=== PATIENT | male | born 1935 | race Caucasian/White ===

== ENCOUNTER 2025-05-23 22:08 | Emergency (ER) | payer BC, MEDICARE, OTHER ==
[2025-05-23 22:15] VITALS: BP 119/81; PULSE 83; RESP 15; TEMP 97.5; O2SAT 98
--- NOTE | 2025-05-23 23:26 | Physician Documentation ---
History of Present Illness ~ Chief Complaint: Nose bleed Stated Complaint: BLOODY NOSE Time Seen by MD: 22:59 Primary Medical Doctor: [facility] Patient is an 89-year-old male that presents to the emergency department for evaluation of nosebleed that started spontaneously approximately an hour and a half to 2 hours ago. Patient reports that he blew his nose at that time his nose started bleeding in the left nostril and then shortly after out of the right nostril. He reports that his right nostril developed a clot he pulled the clot out in the right nostril started bleeding again. Patient reports that his this is his 3rd nosebleed in approximately a month to a month and a half. Patient has had his nose clamped for approximately 30 minutes without resolution of the nosebleed. Denies blood thinners, bleeding disorders, or any other medical conditions that would contribute to the bleeding at this time. Medication Reconciliation Allergies: Coded Allergies: No Known Allergies (Unverified , 04/21/09) Past Medical History Past Medical History: High Cholesterol, Hypertension, GERD Past Surgical History: cholecystectomy, orthopedic surgeries, other Alcohol Use: Rarely Drug Use: none Review of Systems ROS As stated above in the HPI, otherwise all systems are reviewed and negative. Physical Exam Vital Signs: Temperature: 97.5, Source: Temporal, Heart Rate: 83, Respiratory Rate: 15, BP: 119/81, Pulse Oximetry: 98 Physical Exam VITALS: Reviewed and as above. GENERAL: Alert, no apparent distress. HEENT: Normocephalic, atraumatic, PERRL, EOMI, dry mucosa, no erythema, nosebleed to bilateral nares. RESPIRATORY: Lungs clear, normal breath sounds, no respiratory distress. CHEST: No accessory muscle use, no retractions CV: Regular rate, rhythm, no edema, no murmur, No: JVD GI: Soft, non-tender, bowels sounds present, no rebound, guarding, or rigidity BACK: No CVA tenderness, or swelling MUSCULOSKELETAL No deformities, no edema SKIN: Warm and dry, no rash NEURO: Oriented x4, No motor or sensory deficit PSYCH: Normal mood and affect, no agitation Progress Results/Orders Results/Orders Orders - HECTOR VILLA General Nursing Order (05/23/25 23:27) Completed Orders - [facility]ECTOR [facility]A Cbc/Diff (05/23/25 23:32) CMP (05/23/25 23:32) Pt Inr (05/23/25 23:32) PTT (05/23/25 23:32) Tranexamic Acid Inj. (Cyklokapron Inj.) (05/23/25 23:55) Medications Received in ER Medications (Trade) Dose Ordered Sig/Kushal Route PRN Reason Start Time Stop Time Status Last Admin Dose Admin (Cyklokapron inj.) 1,000 mg ONCE ONCE TP 05/23/25 23:55 05/23/25 23:56 DC 05/23/25 23:57 1,000 MG Vital Signs 05/23/25 22:15 Temp 97.5 Pulse 83 Resp 15 B/P (MAP) 119/81 Pulse Ox 98 Laboratory Tests Test 05/23/25 23:47 White Blood Count 7.1 Red Blood Count 4.07 L Hemoglobin 12.5 L Hematocrit 37.1 L Mean Corpuscular Volume 91.2 Mean Corpuscular Hemoglobin 30.8 Mean Corpuscular Hemoglobin Concent 33.7 Red Cell Distribution Width 13.8 Platelet Count 190 Mean Platelet Volume 7.0 L Neutrophils (%) (Auto) 77.4 H Lymphocytes (%) (Auto) 14.7 L Monocytes (%) (Auto) 7.1 Eosinophils (%) (Auto) 0.5 Basophils (%) (Auto) 0.3 Neutrophils # (Auto) 5.5 Lymphocytes # (Auto) 1.0 L Monocytes # (Auto) 0.5 Eosinophils # (Auto) 0.0 Basophils # (Auto) 0.0 CBC Comment Prothrombin Time 10.5 INR International Normalized Ratio 1.0 Activated Partial Thromboplast Time 26 Coagulation Comments Sodium Level 140 Potassium Level 3.7 Chloride Level 107 Carbon Dioxide Level 26.1 Anion Gap 7 L Blood Urea Nitrogen 32 H Creatinine 1.32 H Estimated GFR/1.73 m2 51 BUN/Creatinine Ratio 24.2 H Glucose Level 140 H Calcium Level 9.0 Total Bilirubin 0.7 Aspartate Amino Transf (AST/SGOT) 34 Alanine Aminotransferase (ALT/SGPT) 25 Alkaline Phosphatase 66 Total Protein 6.0 L Albumin 3.1 L Globulin 2.9 Albumin/Globulin Ratio 1.1 Chemistry Comments Medical Decision Making Findings The patient presents with likely anterior epistaxis. There are no risk factors for bleeding disorders and the patient is hemodynamically stable. No evidence of anemia. The patient is not on anticoagulants. The patient required pressure and rhino rockets packed with TXA to control bleeding. Nose Diff. Dx: Considerations: Include: Abrasion, Anterior nasal bleed, Avulsion, Contusion, Coagulopathy, Fracture-nasal bone, Fracture-septum, Hypertension, Laceration, Other, Posterior nasal bleed, Retained foreign body, Septal hematoma Departure Disposition: HOME / SELF CARE / HOMELESS Impression: Primary Impression: Epistaxis Condition: Stable Additional Instructions: The patient presents with likely anterior epistaxis. There are no risk factors for bleeding disorders and the patient is hemodynamically stable. No evidence of anemia. The patient is not on anticoagulants. The patient required pressure and rhino rockets packed with TXA to control bleeding. Patient's bleeding is still controlled after 30 minutes with rhino rocket in place. Due to concerns for re-initiation of bleeding with interruption of capillary bed once rhino rocket is removed, I think it is best to leave rhino rocket in place and have the patient return tomorrow for removal. Patient will return to the emergency department sooner if he has any worsening of his current symptoms or any additional concerning symptoms that we discussed here today i.e. increased bleeding nosebleed that does not stops lightheadedness dizzy nausea vomiting or any other concerning symptoms. Referrals: NO PRIMARY CARE PROVIDER (PCP) Education Educated: Patient Educated regarding: diagnosis, treatment, need for follow up Signature Scribe Signature: A Attestation: Scribed for Hector Villa by NERY Boswell . 05/24/25 01:01 HECTOR [facility]ILLA May 23, 2025 23:26
[2025-05-23] MEDS ORDERED: tranexamic acid inj. 1,000 MG in normal saline 100ml IV soln 90 ML IV ONE (23:50)
[2025-05-23] MEDS: tranexamic acid 100mg/ml inj. TP ONE (23:57)
[2025-05-24 00:16] LABS: MEAN PLATELET VOLUME 7.0 FL (7.4-10.4); RED CELL DISTRIBUTION WIDTH 13.8 % (11.5-14.5)
[2025-05-24 00:21] LABS: APTT 26 SECONDS (22-32); CREATININE 1.32 MG/DL (0.60-1.10); INR 1.0 INR; TOTAL CARBON DIOXIDE 26.1 MMOL/L (24-32); eGFR 51 ML/MIN
== END 2025-05-24 01:15 | disposition home or self-care (01) ==
LOC: ER 22:08
DX: R04.0 Epistaxis (principal); E78.00 Pure hypercholesterolemia, unspecified; I10 Essential (primary) hypertension; K21.9 Gastro-esophageal reflux disease without esophagitis; Z90.49 Acquired absence of other specified parts of digestive tract; Z98.890 Other specified postprocedural states
CPT/HCPCS: 30901; 36415; 80053; 85025; 85610; 85730; 99284; J3490